=== PATIENT | female | born 1945 | race Caucasian/White ===

== ENCOUNTER 2024-08-08 18:18 | Emergency (ER) | payer BC, OTHER ==
[~2024-08-08] VITALS: Ht 157.5 cm; Wt 54.4 kg
[2024-08-08 19:06] LABS: BASOPHILS % (AUTO) 0.4 % (0.0-2.0); DIFFERENTIAL COMMENT 1; EOSINOPHILS # (AUTO) 0.1 K/uL (0.0-0.7); EOSINOPHILS % (AUTO) 0.6 % (0.0-7.0); HEMOGLOBIN 12.3 g/dL (10.9-14.3); LYMPHOCYTES # (AUTO) 0.9 K/uL (0.8-4.8); LYMPHOCYTES % (AUTO) 9.7 % (20.5-51.5); MEAN CORPUSCULAR HEMOGLOBIN 29.7 uug (24.7-32.8); MEAN CORPUSCULAR HGB CONC 33 g/dL (32.3-35.6); MEAN CORPUSCULAR VOLUME 89.4 fL (75.5-95.3); MONOCYTES # (AUTO) 0.5 K/uL (0.1-1.30); MONOCYTES % (AUTO) 5.6 % (0.0-11.0); NEUTROPHILS # (AUTO) 8.1 K/uL (1.8-8.9); NEUTROPHILS % (AUTO) 83.7 % (38.5-71.5); PLATELET COUNT (AUTO) 244 K/uL (179-408); RED BLOOD CELL COUNT(AUTO) 4.14 MIL/uL (3.63-4.92); RED CELL DISTRIBUTION WIDTH 13.4 % (12.3-17.7); WHITE BLOOD COUNT (AUTO) 9.7 K/uL (3.8-11.8)
[2024-08-08 19:10] LABS: CALCIUM 8.8 mg/dL (8.5-10.1); CARBON DIOXIDE 25 mmol/L (21-32); CHLORIDE 100 mmol/L (98-107); GLUCOSE 107 mg/dL (74-106); POTASSIUM 4.3 mmol/L (3.5-5.1); SODIUM SERUM 135 mmol/L (136-145); UREA NITROGEN, BLOOD 19 mg/dL (7-18)
[2024-08-08 19:22] LABS: ALANINE AMINOTRANSFERASE 38 U/L (14-59); ALBUMIN 2.8 g/dL (3.4-5.0); ALKALINE PHOSPHATASE 68 U/L (50-136); ASPARTATE AMINOTRANSFERASE 44 U/L (15-37); BILIRUBIN,DIRECT 0.1 mg/dL (0.0-0.2); BILIRUBIN,TOTAL 0.3 mg/dL (0.2-1.0); NT-PRO BNP 468 pg/mL (0-125)
[2024-08-08] MEDS ORDERED: BENZ-13 PO (20:23)
[2024-08-08] MEDS ORDERED: AZIT250T PO (20:23)
[2024-08-08] MEDS ORDERED: IV NORMAL SALINE 250 ML IV ONE (20:39)
[2024-08-08] MEDS ORDERED: IOHEXOL 350 100 ML INFUS..BTL ONE (20:39)
[2024-08-08] MEDS ORDERED: SWABABLE VALVE TRANSFER SET EA MC ONE (20:39)
[2024-08-08] MEDS ORDERED: AZITHROMYCIN 250 MG TABLET ONE (22:44)
[2024-08-08] MEDS: AZITHROMYCIN 250 MG TABLET PO ONE (22:46)
[2024-08-08 23:11] VITALS: BP 130/82; TEMP 98.7; O2SAT 99
== END 2024-08-08 22:50 | disposition home or self-care (01) ==
LOC: ER 18:20
DX: J40 Bronchitis, not specified as acute or chronic (principal); E78.00 Pure hypercholesterolemia, unspecified; Z20.822 Contact with and (suspected) exposure to COVID-19; Z79.899 Other long term (current) drug therapy
CPT/HCPCS: 99285; 71275; 71045; 87426; 87804 ×2; 80076; 80048; 83880; 85025; 85379; 85730; 87040 ×2; 84484; 36415; 93005; 83605; Q9967; A4606; A4663; Q0144